=== PATIENT | female | born 1985 | race African-American/Black ===

== ENCOUNTER 2017-08-09 21:27 | Inpatient (IN) | payer MEDICAID ==
[~2017-08-09] VITALS: Ht 167.6 cm; Wt 88.5 kg
[2017-08-09] MEDS ORDERED: PNV1TABL76 MT (21:34)
[2017-08-09] MEDS ORDERED: DEXT 5%/LR + PITOCIN 20UNITS/L 1,000 ML IV SCH (21:58)
[2017-08-09] MEDS ORDERED: LACTATED RINGERS 1,000 ML IV SCH (21:58)
[2017-08-09] MEDS ORDERED: AMPICILLIN 2,000 MG in SODIUM CHLORIDE 0.9% 100 ML IV NR (22:00)
[2017-08-09] MEDS ORDERED: NALOXONE HCL 0.4 MG/ML 1ML VIAL IM PRN (22:00)
[2017-08-09] MEDS ORDERED: LIDOCAINE HCL 1% 20ML VIAL (Pyxis) INJ INFIL SCH (22:00)
[2017-08-09] MEDS ORDERED: MISOPROSTOL 100MCG TABLET VG SCH (22:00)
[2017-08-09] MEDS ORDERED: CARBOPROST TROMETHAMINE 250 MCG/ML AMPUL IM PRN (22:00)
[2017-08-09] MEDS ORDERED: METHYLERGONOVINE MALEATE 0.2 MG/ML IM PRN (22:00)
[2017-08-09] MEDS ORDERED: BUTORPHANOL TARTRATE 2 MG/ML VIAL IV PRN (22:00)
[2017-08-09 23:04] LABS: CLARITY URINE CLEAR (CLEAR); COLOR URINE YELLOW (YELLOW); GLUCOSE URINE NEGATIVE (NEGATIVE); KETONES URINE NEGATIVE (NEGATIVE); LEUKOCYTE ESTERASE URINE 1+ (NEGATIVE); NITRITE URINE NEGATIVE (NEGATIVE); OCCULT BLOOD URINE NEGATIVE (NEGATIVE); PROTEIN URINE NEGATIVE (NEGATIVE); SPECIFIC GRAVITY URINE 1.024 (1.005-1.030)
[2017-08-09 23:09] LABS: BASOPHILS % 0.4 % (0.0-2.0); EOSINOPHILS % 0.7 % (0.0-5.0); HEMATOCRIT. 33.4 % (36.0-48.0); HEMOGLOBIN. 11.6 g/dL (12.0-16.0); LYMPHOCYTES % 20.5 % (20.0-50.0); MONOCYTES % 10.1 % (2.0-8.0); NEUTROPHILS % 68.3 % (40.0-76.0); PLATELET 207 x1000/uL (130-400); RED BLOOD CELL COUNT 3.51 mill/uL (4.2-5.4); RED CELL DISTRIBUTION WIDTH 13.9 % (11.6-14.6)
[2017-08-09 23:20] LABS: INR 0.9; PARTIAL THROMBOPLASTIN TIME 25.9 sec (23.4-31.0); PROTHROMBIN TIME 9.4 sec (9.4-11.6)
[2017-08-09 23:28] LABS: *AMPHETAMINES SCREEN URINE NEGATIVE (NEGATIVE); *BARBITURATES SCREEN URINE NEGATIVE (NEGATIVE); *BENZODIAZEPINES SCREEN URINE NEGATIVE (NEGATIVE); *COCAINE SCREEN URINE NEGATIVE (NEGATIVE); METHADONE URINE SCREEN NEGATIVE (NEGATIVE); OPIATES URINE SCREEN NEGATIVE (NEGATIVE); PHENCYCLIDINE URINE SCREEN NEGATIVE (NEGATIVE)
[2017-08-09 23:31] LABS: CANNABINOID URINE SCREEN PRESUMTIVE POSITIVE (NEGATIVE)
[2017-08-10] MEDS ORDERED: DEXT 5%/LR + PITOCIN 20UNITS/L 1,000 ML IV SCH (00:13)
[2017-08-10] MEDS ORDERED: OXYCODONE HCL/ACETAMINOPHEN 5/325MG TABLET PO PRN (00:15)
[2017-08-10] MEDS ORDERED: BISACODYL 10MG SUPP PR PRN (00:15)
[2017-08-10] MEDS ORDERED: GLYCERIN/WITCH HAZEL LEAF MEDICATED PAD TOP PRN (00:15)
[2017-08-10] MEDS ORDERED: LANOLIN OINT 0.25 GM TUBE TOP PRN (00:15)
[2017-08-10] MEDS ORDERED: BENZOCAINE/LANOLIN/ALOE VERA SPRAY TOP PRN (00:15)
[2017-08-10] MEDS ORDERED: ACETAMINOPHEN WITH CODEINE 300/30MG TABLET PO PRN (00:15)
[2017-08-10] MEDS ORDERED: HEMORRHOIDAL SUPP PR PRN (00:15)
[2017-08-10 03:15] VITALS: BP 117/59
[2017-08-10] MEDS: IBUPROFEN 400MG TABLET PO PRN (03:26)
[2017-08-10 03:30] VITALS: BP 121/71
[2017-08-10] MEDS ORDERED: AMPICILLIN 1,000 MG in SODIUM CHLORIDE 0.9% 50 ML IV SCH (04:00)
[2017-08-10 04:01] VITALS: BP 125/73
[2017-08-10 07:43] VITALS: BP 115/63
[2017-08-10] MEDS: SIMETHICONE 80MG TABLET CHEW PO SCH ×4 (08:27→21:05)
[2017-08-10] MEDS: PRENATAL VIT/FE FUMARATE/FA TABLET PO SCH (08:28)
[2017-08-10] MEDS: MAGNESIUM/ALUMINUM HYDROXIDE/SIMETHICONE 30ML UDC PO SCH ×4 (08:29→21:07)
[2017-08-10 16:10] VITALS: BP 112/64
[2017-08-10] MEDS: DOCUSATE SODIUM 100MG CAPSULE PO SCH (21:08)
[2017-08-11] VITALS: BP 129/77
[2017-08-11 05:58] LABS: BASOPHILS % 0.2 % (0.0-2.0); EOSINOPHILS % 0.9 % (0.0-5.0); HEMATOCRIT. 30.4 % (36.0-48.0); HEMOGLOBIN. 10.3 g/dL (12.0-16.0); LYMPHOCYTES % 23.3 % (20.0-50.0); MEAN CORPUSCULAR HEMOGLOBIN 32.4 pg (28.0-32.0); MEAN CORPUSCULAR VOLUME 95.4 fL (81.0-99.0); MEAN PLATELET VOLUME 7.8 fl (7.4-10.4); NEUTROPHILS % 66.6 % (40.0-76.0); PLATELET 187 x1000/uL (130-400); RED BLOOD CELL COUNT 3.18 mill/uL (4.2-5.4); RED CELL DISTRIBUTION WIDTH 13.9 % (11.6-14.6)
[2017-08-11] MEDS: PRENATAL VIT/FE FUMARATE/FA TABLET PO SCH (07:51)
[2017-08-11] MEDS: IBUPROFEN 400MG TABLET PO PRN ×2 (07:52→20:47)
[2017-08-11] MEDS: MAGNESIUM/ALUMINUM HYDROXIDE/SIMETHICONE 30ML UDC PO SCH ×3 (07:54→20:43)
[2017-08-11] MEDS: SIMETHICONE 80MG TABLET CHEW PO SCH ×3 (07:54→20:44)
[2017-08-11 08:20] VITALS: BP 130/80
[2017-08-11] MEDS: FERROUS SULFATE 325MG TABLET PO SCH (13:00)
[2017-08-11] MEDS ORDERED: TETANUS, DIPHTHERIA, PERTUSSIS VAC/PF 0.5ML (>7YR OLD) IM ONE (16:00)
[2017-08-11] MEDS ORDERED: INFLUENZA VIRUS VACCINE 0.5ML SYR IM ONE (16:00)
[2017-08-11 16:20] VITALS: BP 149/83
[2017-08-11 19:55] VITALS: BP 117/65
[2017-08-11] MEDS: DOCUSATE SODIUM 100MG CAPSULE PO SCH (20:44)
[2017-08-11 20:47] VITALS: BP 128/68
[2017-08-12] VITALS: BP 130/70
[2017-08-12 09:00] VITALS: BP 130/83
[2017-08-12] MEDS: FERROUS SULFATE 325MG TABLET PO SCH (10:44)
[2017-08-12] MEDS: DOCUSATE SODIUM 100MG CAPSULE PO SCH (10:44)
[2017-08-12] MEDS: MAGNESIUM/ALUMINUM HYDROXIDE/SIMETHICONE 30ML UDC PO SCH (10:45)
[2017-08-12] MEDS: SIMETHICONE 80MG TABLET CHEW PO SCH (10:45)
[2017-08-12 13:59] VITALS: BP 130/83
== END 2017-08-12 18:40 | disposition home or self-care (01) | DRG 560 ==
LOC: OBSVTOIN 21:27 → L&D 21:27 → 7EST PP/OB 08-10 02:46
PROVIDERS: ADMIT Obstetrics & Gynecology; ATTEND Obstetrics & Gynecology
PROC: 10E0XZZ Delivery of Products of Conception, External Approach (ICD-10-PCS; principal; 2017-08-10)
DX: O60.23X0 Term delivery with preterm labor, third trimester, not applicable or unspecified (principal); O77.0 Labor and delivery complicated by meconium in amniotic fluid; O69.81X0 Labor and delivery complicated by cord around neck, without compression, not applicable or unspecified; Z37.0 Single live birth; Z79.899 Other long term (current) drug therapy; Z3A.40 40 weeks gestation of pregnancy
CPT/HCPCS: 36415; 80305; 80349; 81001; 85025; 85610; 85730; 86592; 86703; 86762; 86850; 86900; 87340; 90686; 90715; G0378; J0290; J0595; J2310; J2590; J7050; J7120

== ENCOUNTER 2019-11-03 23:30 | Observation (INO) | payer MEDICAID ==
[~2019-11-03] VITALS: Ht 167.6 cm; Wt 93.9 kg
[2019-11-04] MEDS ORDERED: LACTATED RINGERS 1,000 ML IV NR (00:11)
[2019-11-04] MEDS ORDERED: BETAMETHASONE ACET/BETAMET 30 MG/5 ML VIAL IM NR (00:15)
[2019-11-04 02:27] LABS: CLARITY URINE CLEAR (CLEAR); COLOR URINE YELLOW (YELLOW); KETONES URINE NEGATIVE (NEGATIVE); LEUKOCYTE ESTERASE URINE 2+ (NEGATIVE); NITRITE URINE POSITIVE (NEGATIVE); OCCULT BLOOD URINE TRACE (NEGATIVE); PROTEIN URINE NEGATIVE (NEGATIVE); SPECIFIC GRAVITY URINE 1.027 (1.005-1.030)
[2019-11-04 03:02] LABS: *AMPHETAMINES SCREEN URINE NEGATIVE (NEGATIVE); *BARBITURATES SCREEN URINE NEGATIVE (NEGATIVE); *BENZODIAZEPINES SCREEN URINE NEGATIVE (NEGATIVE); *COCAINE SCREEN URINE NEGATIVE (NEGATIVE)
[2019-11-04 03:03] LABS: OPIATES URINE SCREEN NEGATIVE (NEGATIVE); PHENCYCLIDINE URINE SCREEN NEGATIVE (NEGATIVE)
[2019-11-04 03:05] LABS: METHADONE URINE SCREEN NEGATIVE (NEGATIVE)
[2019-11-04 03:09] LABS: CANNABINOID URINE SCREEN PRESUMTIVE POSITIVE (NEGATIVE)
[2019-11-04] MEDS ORDERED: PNV1TABL50 PO (03:26)
[2019-11-04] MEDS ORDERED: CEFAZOLIN 2,000 MG in DEXT 5% WATER 100 ML IV NR (03:30)
== END 2019-11-04 04:00 | disposition home or self-care (01) ==
LOC: 8 EST LDRP 23:30
PROVIDERS: ADMIT Obstetrics & Gynecology; ATTEND Obstetrics & Gynecology
DX: O62.9 Abnormality of forces of labor, unspecified (principal); Z3A.32 32 weeks gestation of pregnancy
CPT/HCPCS: 76805; 76818; 80305; 80349; 81003; 96365; 99281; G0378; J0690; J7060

== ENCOUNTER 2019-11-17 13:14 | Observation (INO) | payer MEDICAID ==
[~2019-11-17] VITALS: Ht 167.6 cm; Wt 98.9 kg
[~2019-11-17 13:14] MED LIST: PNV1TABL50 PO
[2019-11-17] MEDS ORDERED: FERR325T6 MT (14:30)
[2019-11-17 15:27] LABS: CLARITY URINE CLEAR (CLEAR); COLOR URINE YELLOW (YELLOW); KETONES URINE NEGATIVE (NEGATIVE); LEUKOCYTE ESTERASE URINE TRACE (NEGATIVE); NITRITE URINE NEGATIVE (NEGATIVE); OCCULT BLOOD URINE NEGATIVE (NEGATIVE); PH URINE 6.5 (4.5-8.0); PROTEIN URINE NEGATIVE (NEGATIVE); SPECIFIC GRAVITY URINE 1.026 (1.005-1.030)
[2019-11-17 15:30] LABS: BASOPHILS % 0.2 % (0.0-2.0); CHLORIDE 110 mEq/L (98-107); EOSINOPHILS % 1.3 % (0.0-5.0); HEMATOCRIT. 30.1 % (36.0-48.0); HEMOGLOBIN. 10.2 g/dL (12.0-16.0); MEAN CORPUSCULAR HEMOGLOBIN 29.5 pg (28.0-32.0); MEAN CORPUSCULAR VOLUME 86.7 fL (81.0-99.0); MEAN PLATELET VOLUME 7.9 fl (7.4-10.4); MONOCYTES % 10.1 % (2.0-8.0); NEUTROPHILS % 68.4 % (40.0-76.0); PLATELET 186 x1000/uL (130-400); RED BLOOD CELL COUNT 3.47 mill/uL (4.2-5.4); RED CELL DISTRIBUTION WIDTH 20.3 % (11.6-14.6)
[2019-11-17] MEDS ORDERED: BETAMETHASONE ACET/BETAMET 30 MG/5 ML VIAL IM SCH (15:30)
[2019-11-17 15:51] LABS: D-DIMER 1.07 mg/L FEU (<0.50); INR 0.9; PARTIAL THROMBOPLASTIN TIME 26.8 sec (23.4-31.0); PROTHROMBIN TIME 9.8 sec (9.6-11.0)
== END 2019-11-17 16:15 | disposition home or self-care (01) ==
LOC: 8 EST LDRP 13:14
PROVIDERS: ADMIT Obstetrics & Gynecology; ATTEND Obstetrics & Gynecology
DX: Z34.83 Encounter for supervision of other normal pregnancy, third trimester (principal); Z3A.34 34 weeks gestation of pregnancy
CPT/HCPCS: 36415; 80053; 81003; 84550; 85025; 85379; 85384; 85610; 85730; 96372; 99281; G0378; J0702

== ENCOUNTER 2019-11-18 15:22 | Observation (INO) | payer MEDICAID ==
[~2019-11-18 15:22] MED LIST changes: +FERR325T6 MT
[2019-11-18] MEDS ORDERED: BETAMETHASONE ACET/BETAMET 30 MG/5 ML VIAL IM NR (16:00)
== END 2019-11-18 16:45 | disposition home or self-care (01) ==
LOC: 8 EST LDRP 15:22
PROVIDERS: ADMIT Obstetrics & Gynecology; ATTEND Obstetrics & Gynecology
DX: Z34.83 Encounter for supervision of other normal pregnancy, third trimester (principal); Z3A.33 33 weeks gestation of pregnancy
CPT/HCPCS: 99281; G0378

== ENCOUNTER 2019-11-24 13:31 | Inpatient (IN) | payer MEDICAID ==
[~2019-11-24] VITALS: Ht 167.6 cm; Wt 98.0 kg
[2019-11-24] MEDS ORDERED: LACTATED RINGERS 1,000 ML IV SCH (15:00)
[2019-11-24 16:18] LABS: CLARITY URINE CLEAR (CLEAR); COLOR URINE YELLOW (YELLOW); KETONES URINE NEGATIVE (NEGATIVE); LEUKOCYTE ESTERASE URINE NEGATIVE (NEGATIVE); NITRITE URINE NEGATIVE (NEGATIVE); OCCULT BLOOD URINE TRACE (NEGATIVE); PROTEIN URINE 1+ (NEGATIVE); SPECIFIC GRAVITY URINE 1.027 (1.005-1.030); UROBILINOGEN URINE 0.2 E.U./dL (0.2-1.0)
[2019-11-24 16:23] LABS: BASOPHILS % 0.6 % (0.0-2.0); EOSINOPHILS % 0.3 % (0.0-5.0); HEMATOCRIT. 31.7 % (36.0-48.0); HEMOGLOBIN. 10.6 g/dL (12.0-16.0); LYMPHOCYTES % 26.5 % (20.0-50.0); MEAN CORPUSCULAR HEMOGLOBIN 28.7 pg (28.0-32.0); MEAN CORPUSCULAR VOLUME 85.9 fL (81.0-99.0); MEAN PLATELET VOLUME 8.2 fl (7.4-10.4); MONOCYTES % 8.7 % (2.0-8.0); NEUTROPHILS % 63.9 % (40.0-76.0); PLATELET 220 x1000/uL (130-400); RED BLOOD CELL COUNT 3.68 mill/uL (4.2-5.4)
[2019-11-24 16:29] LABS: *AMPHETAMINES SCREEN URINE NEGATIVE (NEGATIVE); *BARBITURATES SCREEN URINE NEGATIVE (NEGATIVE); CHLORIDE 109 mEq/L (98-107)
[2019-11-24 16:30] LABS: *BENZODIAZEPINES SCREEN URINE NEGATIVE (NEGATIVE); *COCAINE SCREEN URINE NEGATIVE (NEGATIVE); METHADONE URINE SCREEN NEGATIVE (NEGATIVE); OPIATES URINE SCREEN NEGATIVE (NEGATIVE)
[2019-11-24 16:32] LABS: PHENCYCLIDINE URINE SCREEN NEGATIVE (NEGATIVE)
[2019-11-24 16:40] LABS: D-DIMER 1.2 mg/L FEU (<0.50); INR 0.9; PARTIAL THROMBOPLASTIN TIME 30.5 sec (23.4-31.0); PROTHROMBIN TIME 9.6 sec (9.6-11.0)
[2019-11-24 16:45] LABS: CANNABINOID URINE SCREEN PRESUMTIVE POSITIVE (NEGATIVE)
[2019-11-24] MEDS ORDERED: MISOPROSTOL 100MCG TABLET VG SCH (19:00)
[2019-11-24] MEDS ORDERED: NALOXONE HCL 0.4 MG/ML 1ML VIAL IM PRN (20:00)
[2019-11-24] MEDS ORDERED: LIDOCAINE HCL 1% 20ML VIAL (Pyxis) INJ INFIL PRN (20:00)
[2019-11-24] MEDS ORDERED: CARBOPROST TROMETHAMINE 250 MCG/ML AMPUL IM PRN (20:00)
[2019-11-24] MEDS ORDERED: BUTORPHANOL TARTRATE 2 MG/ML VIAL IV PRN (20:00)
[2019-11-24] MEDS ORDERED: MAGNESIUM 2 G PREMIX 50 ML IV NR (20:15)
[2019-11-24] MEDS ORDERED: MAGNESIUM 1 G PREMIX 100 ML IV SCH (20:15)
[2019-11-24] MEDS ORDERED: MAGNESIUM 20 G PREMIX (L & D) 500 ML IV SCH (21:45)
[2019-11-24] MEDS ORDERED: CALC1TAB99 PO (22:29)
[2019-11-24] MEDS ORDERED: FOLI-43 PO (22:29)
[2019-11-24] MEDS: MISOPROSTOL 100MCG TABLET VG PRN (22:43)
[2019-11-25] MEDS ORDERED: HYDRALAZINE 20MG/ML VIAL IV PRN (00:45)
[2019-11-25] MEDS ORDERED: LABETALOL HCL 5MG/ML VIAL 20ML IV PRN ×5 (00:45→11:45)
[2019-11-25] MEDS: LACTATED RINGERS 1,000 ML IV SCH ×2 (01:39→12:00)
[2019-11-25] MEDS: MISOPROSTOL 100MCG TABLET VG PRN ×2 (03:48→07:41)
[2019-11-25 07:59] LABS: BASOPHILS % 0.2 % (0.0-2.0); EOSINOPHILS % 0.2 % (0.0-5.0); HEMATOCRIT. 30.8 % (36.0-48.0); HEMOGLOBIN. 10.3 g/dL (12.0-16.0); LYMPHOCYTES % 25.9 % (20.0-50.0); MEAN CORPUSCULAR VOLUME 86.4 fL (81.0-99.0); MEAN PLATELET VOLUME 7.6 fl (7.4-10.4); NEUTROPHILS % 64.7 % (40.0-76.0); PLATELET 206 x1000/uL (130-400); RED BLOOD CELL COUNT 3.57 mill/uL (4.2-5.4); RED CELL DISTRIBUTION WIDTH 20.4 % (11.6-14.6)
[2019-11-25] MEDS ORDERED: AMPICILLIN 2,000 MG in SODIUM CHLORIDE 0.9% 100 ML IV SCH (08:00)
[2019-11-25] MEDS ORDERED: BETAMETHASONE ACET/BETAMET 30 MG/5 ML VIAL IM ONE (09:00)
[2019-11-25 12:48] LABS: HEPATITIS B SURFACE ANTIGEN NEGATIVE
[2019-11-25] MEDS ORDERED: ROPIVACAINE HCL 2MG/ML (0.2%) 200ML BOTTLE IR ONE (13:00)
[2019-11-25] MEDS ORDERED: ROPIVACAINE HCL/PF EPIDURAL 200 ML EPI SCH (13:00)
[2019-11-25] MEDS ORDERED: FENTANYL CITRATE/PF 50MCG/ML 2ML VIAL ONE (13:15)
[2019-11-25] MEDS ORDERED: BUPIVACAINE HCL/PF 0.25% (2.5MG/ML) 10ML ONE (13:16)
[2019-11-25] MEDS ORDERED: AMPICILLIN 1,000 MG in SODIUM CHLORIDE 0.9% 50 ML IV SCH (14:00)
[2019-11-25] MEDS ORDERED: DEXT 5%/LR + PITOCIN 20UNITS/L 1,000 ML IV ONE (16:30)
[2019-11-25] MEDS ORDERED: DEXT 5%/LR + PITOCIN 20UNITS/L 1,000 ML IV SCH (18:14)
[2019-11-25] MEDS ORDERED: MAGNESIUM 20 G PREMIX (L & D) 500 ML IV SCH (18:14)
[2019-11-25] MEDS ORDERED: IBUPROFEN 400MG TABLET PO PRN (18:15)
[2019-11-25] MEDS ORDERED: RHO(D) IMMUNE GLOBULIN 300 MCG/SYR IM PRN (18:15)
[2019-11-25] MEDS ORDERED: IBUPROFEN 800MG TABLET PO PRN (18:15)
[2019-11-25 20:10] VITALS: BP 135/90
[2019-11-25 20:40] VITALS: BP 142/87
[2019-11-25 21:10] VITALS: BP 135/76
[2019-11-26] VITALS (8 sets, daily range): BP systolic 119–149; BP diastolic 65–91
[2019-11-26 06:55] LABS: BASOPHILS % 0.2 % (0.0-2.0); EOSINOPHILS % 0.2 % (0.0-5.0); HEMATOCRIT. 26.3 % (36.0-48.0); HEMOGLOBIN. 8.9 g/dL (12.0-16.0); LYMPHOCYTES % 20.9 % (20.0-50.0); MEAN CORPUSCULAR HEMOGLOBIN 28.8 pg (28.0-32.0); MEAN CORPUSCULAR VOLUME 85.3 fL (81.0-99.0); MEAN PLATELET VOLUME 8.1 fl (7.4-10.4); MONOCYTES % 7.1 % (2.0-8.0); NEUTROPHILS % 71.6 % (40.0-76.0); PLATELET 208 x1000/uL (130-400); RED BLOOD CELL COUNT 3.09 mill/uL (4.2-5.4); RED CELL DISTRIBUTION WIDTH 20.1 % (11.6-14.6)
[2019-11-26] MEDS ORDERED: PRENATAL VIT/FE FUMARATE/FA TABLET PO SCH (09:00)
[2019-11-26] MEDS ORDERED: TETANUS, DIPHTHERIA, PERTUSSIS VAC/PF 0.5ML (>7YR OLD) IM ONE (15:00)
[2019-11-26] MEDS ORDERED: DEXT 5%/LR + PITOCIN 20UNITS/L 1,000 ML IV SCH (19:30)
[2019-11-27 04:35] VITALS: BP 152/98
[2019-11-27] MEDS ORDERED: LABE100T5 MT (05:41)
[2019-11-27] MEDS ORDERED: IBUP-2030 MT (05:41)
[2019-11-27 08:25] VITALS: BP 149/89
[2019-11-30 04:07] LABS: CANNABINOID CONFIRMATION URINE Positive (.)
== END 2019-11-27 13:30 | disposition home or self-care (01) | DRG 560 ==
LOC: 8 EST LDRP 13:31 → OBSVTOIN 13:31 → 8EST 11-25 20:46
PROVIDERS: ADMIT Obstetrics & Gynecology; ATTEND Obstetrics & Gynecology
PROC: 10E0XZZ Delivery of Products of Conception, External Approach (ICD-10-PCS; principal; 2019-11-25)
PROC: 3E0R3BZ Introduction of Anesthetic Agent into Spinal Canal, Percutaneous Approach (ICD-10-PCS; 2019-11-25)
PROC: 00HU33Z Insertion of Infusion Device into Spinal Canal, Percutaneous Approach (ICD-10-PCS; 2019-11-25)
PROC: 3E033VJ Introduction of Other Hormone into Peripheral Vein, Percutaneous Approach (ICD-10-PCS; 2019-11-25)
PROC: 3E0P7VZ Introduction of Hormone into Female Reproductive, Via Natural or Artificial Opening (ICD-10-PCS; 2019-11-25)
DX: O14.94 Unspecified pre-eclampsia, complicating childbirth (principal); D62 Acute posthemorrhagic anemia; O13.4 Gestational [pregnancy-induced] hypertension without significant proteinuria, complicating childbirth; O99.324 Drug use complicating childbirth; O99.02 Anemia complicating childbirth; F12.10 Cannabis abuse, uncomplicated; Z37.0 Single live birth; Z3A.34 34 weeks gestation of pregnancy
CPT/HCPCS: 36415; 76805; 76818; 80053; 80305; 80349; 81003; 83735; 84550; 85025; 85379; 85384; 86592; 86703; 86762; 86850; 86900; 87340; 90715; 99281; J0290; J2590; J2795; J3010; J3475; J3490; J7050; J7120